=== PATIENT | female | born 1955 | race Caucasian/White ===

== ENCOUNTER 2017-03-06 11:32 | Emergency (ER) | payer OTHER ==
[~2017-03-06] VITALS: Ht 154.9 cm; Wt 80.5 kg
[~2017-03-06 11:32] MED LIST: BENT20TA PO; FIORIC PO; HYDR15TA PO; LEVO112T17 PO; LISI-360 PO; NAPR-573 PO; PRED20 PO; RANI150 PO; ROBA750T3 PO; TRAM50 PO
[2017-03-06 11:33] VITALS: BP 179/104; PULSE 160; RESP 20; TEMP 98.1; O2SAT 98
[2017-03-06 11:52] VITALS: BP 157/119; PULSE 159; RESP 17; TEMP 98.3; O2SAT 99
[2017-03-06] MEDS ORDERED: DILTIAZEM INJ 125 MG in SODIUM CHLORIDE 0.9% INJ 100 ML IV PRN (12:00)
[2017-03-06] MEDS ORDERED: SODIUM CHLORIDE 0.9% FLUSH 10 ML FLUSH IVF PRN (12:00)
[2017-03-06] MEDS ORDERED: SODIUM CHLOR 0.9% 1000 ML INJ 1,000 ML IV ONE (12:00)
[2017-03-06] MEDS ORDERED: DILTIAZEM HCL 25 MG/5 ML VIAL IV PUSH ONE (12:00)
[2017-03-06 12:17] VITALS: BP 191/84; PULSE 101; RESP 18; O2SAT 97
[2017-03-06 12:19] VITALS: BP 154/68; PULSE 98; RESP 17; O2SAT 97
--- NOTE | 2017-03-06 12:29 | RADRPT ---
EXAM DATE/TIME: 03/06/2017 12:10 [place] COMPARISON: No previous studies available for comparison. INDICATIONS : Chest pain. MEDICAL HISTORY : Hypertension. SURGICAL HISTORY : None. ENCOUNTER: Initial ACUITY: 1 day PAIN SCORE: 7/10 LOCATION: Bilateral middle chest FINDINGS: A single view of the chest demonstrates the lungs to be symmetrically aerated without evidence of mas s, infiltrate or effusion. The cardiomediastinal contours are unremarkable. Osseous structures are intact. CONCLUSION: No acute disease. Pacheco Huddleston MD on March 06, 2017 at 12:28 Board Certified Radiologist. This report was verified electronically.
--- NOTE | 2017-03-06 12:30 | PD ---
HPI Chief Complaint: Chest Pain Time Seen by Provider: 11:58 Travel History International Travel<30 days: No Contact w/Intl Traveler<30days: No Traveled to known affect area: No History of Present Illness HPI This 62-year-old woman who presents to the emergency department cleaning of 3 days of headache and neck pain with the abrupt onset of severe pounding chest pain about 40 minutes prior to arrival. She describes palpitations and chest discomfort. She's never had previous similar symptoms. Denies any injury or overuse in her neck or back. She takes tramadol for chronic pain as well as methotrexate and Percocet prednisone for rheumatoid arthritis. No history of arrhythmia or heart problems. History Past Medical History Narrative Medical Hypertension Hypothyroidism RA, on methotrexate and prednisone Fibromyalgia Menopausal: Yes : 3 Para: 3 Social History Alcohol Use: Yes (OCCASIONALLY) Tobacco Use: No Allergies-Medications (Allergen,Severity, Reaction): Coded Allergies: ibuprofen (Unverified Adverse Reaction, Severe, ABD PAIN, 12/18/16) Reported Meds & Prescriptions Reported Meds & Active Scripts Active Robaxin-750 (Methocarbamol) 750 Mg Tab 750 Mg PO QID PRN Deltasone 20 Mg Tab (Prednisone) 20 Mg Tab 20 Mg PO BID 5 Days Robaxin-750 (Methocarbamol) 750 Mg Tab 750 Mg PO QID PRN Ultram (Tramadol HCl) 50 Mg Tab 50 Mg PO Q6 PRN FOR PAIN Lisinopril 10 mg (Lisinopril) 10 Mg Tab 10 Mg PO DAILY Fioricet Tab (Acetaminophen/Butalbital/Caffeine) 1 Tab Tab 1 Tab PO Q6H PRN Reported Bentyl (Dicyclomine HCl) 20 Mg Tab 20 Mg PO QID PRN Naproxen 375 Mg Tab 375 Mg PO Q12 Plaquenil (Hydroxychloroquine Sulfate) 200 Mg Tab 200 Mg PO DAILY Zantac (Ranitidine HCl) 150 Mg Tab 150 Mg PO DAILYPRN Levoxyl (Levothyroxine Sodium) 112 Mcg Tab 112 Mcg PO DAILY Review of Systems Except as stated in HPI: all other systems reviewed are Neg Physical Exam Narrative GENERAL: Well-appearing 62-year-old woman, no acute distress. SKIN: Focused skin assessment warm/dry. HEAD: Atraumatic. Normocephalic. EYES: Pupils equal and round. No scleral icterus. No injection or drainage. ENT: No nasal bleeding or discharge. Mucous membranes pink and moist. NECK: Trachea midline. No JVD. CARDIOVASCULAR: Heart rate rapid and regular. No murmurs. RESPIRATORY: No accessory muscle use. Clear to auscultation. Breath sounds equal bilaterally. GASTROINTESTINAL: Abdomen soft, non-tender, nondistended. Hepatic and splenic margins not palpable. MUSCULOSKELETAL: No obvious deformities. No clubbing. No cyanosis. No edema. NEUROLOGICAL: Awake and alert. No obvious cranial nerve deficits. Motor grossly within normal limits. Normal speech. PSYCHIATRIC: Anxious. Data Data Last Documented VS Vital Signs Date Time Temp Pulse Resp B/P (MAP) Pulse Ox O2 Delivery O2 Flow Rate FiO2 03/06/17 12:31 88 18 140/65 (90) 98 03/06/17 12:19 Room Air 03/06/17 11:52 98.3 Orders Orders Electrocardiogram (03/06/17 11:58) Complete Blood Count With Diff (03/06/17 11:58) Comprehensive Metabolic Panel (03/06/17 11:58) Magnesium (Mg) (03/06/17 11:58) Prothrombin Time / Inr (Pt) (03/06/17 11:58) Act Partial Throm Time (Ptt) (03/06/17 11:58) Troponin I (03/06/17 11:58) Chest, Single Ap (03/06/17 11:58) Ecg Monitoring (03/06/17 11:58) Iv Access Insert/Monitor (03/06/17 11:58) Oximetry (03/06/17 11:58) Oxygen Administration (03/06/17 11:58) Sodium Chloride 0.9% Flush (Ns Flush) (03/06/17 12:00) Sodium Chlor 0.9% 1000 Ml Inj (Ns 1000 M (03/06/17 12:00) Vital Signs (Adult) Q15MX4,Q4H (03/06/17 11:58) Pie Cutter / Telemetry RITIKA.Q8H (03/06/17 11:58) Cardiac Rhythm RITIKA.Q8H (03/06/17 11:58) Notify Dr: Other (03/06/17 11:58) Diltiazem Inj (Cardizem Inj) (03/06/17 12:00) Diltiazem Inj (Cardizem Inj) (03/06/17 12:00) Electrocardiogram (03/06/17 11:50) Labs Laboratory Tests Test 03/06/17 12:10 White Blood Count 14.2 TH/MM3 Red Blood Count 4.99 MIL/MM3 Hemoglobin 12.8 GM/DL Hematocrit 39.9 % Mean Corpuscular Volume 80.0 FL Mean Corpuscular Hemoglobin 25.6 PG Mean Corpuscular Hemoglobin Concent 32.0 % Red Cell Distribution Width 19.3 % Platelet Count 410 TH/MM3 Mean Platelet Volume 7.9 FL Neutrophils (%) (Auto) 81.4 % Lymphocytes (%) (Auto) 11.6 % Monocytes (%) (Auto) 6.0 % Eosinophils (%) (Auto) 0.4 % Basophils (%) (Auto) 0.6 % Neutrophils # (Auto) 11.5 TH/MM3 Lymphocytes # (Auto) 1.6 TH/MM3 Monocytes # (Auto) 0.9 TH/MM3 Eosinophils # (Auto) 0.1 TH/MM3 Basophils # (Auto) 0.1 TH/MM3 CBC Comment DIFF FINAL Differential Comment Prothrombin Time 10.3 SEC Prothromb Time International Ratio 0.9 RATIO Activated Partial Thromboplast Time 27.9 SEC Blood Urea Nitrogen 15 MG/DL Creatinine 0.76 MG/DL Random Glucose 138 MG/DL Total Protein 8.0 GM/DL Albumin 3.9 GM/DL Calcium Level 9.3 MG/DL Magnesium Level 2.1 MG/DL Alkaline Phosphatase 107 U/L Aspartate Amino Transf (AST/SGOT) 27 U/L Alanine Aminotransferase (ALT/SGPT) 35 U/L Total Bilirubin 0.6 MG/DL Sodium Level 137 MEQ/L Potassium Level 3.2 MEQ/L Chloride Level 100 MEQ/L Carbon Dioxide Level 27.8 MEQ/L Anion Gap 9 MEQ/L Estimat Glomerular Filtration Rate 78 ML/MIN Troponin I LESS THAN 0.02 NG/ML MDM Medical Decision Making Medical Screen Exam Complete: Yes Emergency Medical Condition: Yes Interpretation(s) My review of initial EKG: Rapid fairly regular narrow rhythm at a rate of 157 probable atrial flutter. No definite evidence of acute ischemia. My review of repeat EKG from 12:20 PM: Normal sinus rhythm at a rate of 94, normal axis, normal intervals, no acute ischemia. Chest x-ray: LABS: CBC remarkable for mild leukocytosis. CMP unremarkable Troponin negative Magnesium normal Coags unremarkable Differential Diagnosis SVT, a flutter, arrhythmia, electrolyte abnormalities, other Narrative Course Medical decision making INITIAL: This is a 8-year-old woman presents emergency Department with chest pain and palpitations found to be in SVT, likely a flutter, we'll check labs, x- ray, diltiazem, reassess. FINAL: Patient with SVT, possible a flutter, spontaneously resolved. Workups unremarkable. Recommend outpatient follow-up. Diagnosis Primary Impression: SVT (supraventricular tachycardia) Additional Instructions: Follow-up with your primary doctor in the next 2-4 days. Return to the emergency department for any new or worsening symptoms. Med/Other Pt SpecificInfo: No Change to Meds Disposition: 01 DISCHARGE HOME Condition: Stable Alex Weiner MD Mar 06, 2017 12:30
[2017-03-06 12:31] VITALS: BP 140/65; PULSE 88; RESP 18; O2SAT 98
[2017-03-06 13:24] LABS: AUTOMATED NEUTROPHIL # 11.5 TH/MM3 (1.8-7.7); BASOPHIL # 0.1 TH/MM3 (0-0.2); BASOPHIL % 0.6 % (0.0-2.0); EOSINOPHIL # 0.1 TH/MM3 (0-0.4); EOSINOPHIL % 0.4 % (0.0-4.0); HEMATOCRIT 39.9 % (35.0-46.0); HEMO FLAGS DIFF FINAL; LYMPH % 11.6 % (9.0-44.0); LYMPHOCYTE # 1.6 TH/MM3 (1.0-4.8); MEAN CORPUSCULAR HEMOGLOBIN 25.6 PG (27.0-34.0); NEUT % 81.4 % (16.0-70.0); PLATELET COUNT 410 TH/MM3 (150-450); RED BLOOD COUNT 4.99 MIL/MM3 (4.00-5.30); RED CELL DISTRIBUTION WIDTH 19.3 % (11.6-17.2); WHITE BLOOD COUNT 14.2 TH/MM3 (4.0-11.0)
[2017-03-06 13:42] LABS: APTT (PATIENT) 27.9 SEC (24.3-30.1); INTERNATIONAL NORMALIZED RATIO 0.9 RATIO; PROTHROMBIN TIME - PATIENT 10.3 SEC (9.8-11.6)
[2017-03-06 13:51] LABS: ANION GAP 9 MEQ/L (5-15); AST (GOT) 27 U/L (15-37); BICARBONATE 27.8 MEQ/L (21.0-32.0); BLOOD UREA NITROGEN 15 MG/DL (7-18); CHLORIDE 100 MEQ/L (98-107); GLOMERULAR FILTRATION RATE 78 ML/MIN (>89); MAGNESIUM 2.1 MG/DL (1.5-2.5); POTASSIUM 3.2 MEQ/L (3.5-5.1); SODIUM (NA) 137 MEQ/L (136-145)
[2017-03-06 13:57] LABS: ALKALINE PHOSPHATASE 107 U/L (45-117); ALT (GPT) 35 U/L (10-53); TOTAL BILIRUBIN ADULT 0.6 MG/DL (0.2-1.0)
--- NOTE | 2017-03-07 13:25 | EKG ---
Date Performed: 03/06/2017 Time Performed: 11:50:21 PTAGE: 62 years EKG: ATRIAL FLUTTER/TACHYCARDIA WITH RAPID VENTRICULAR RESPONSE MODERATE ST DEPRESSION ABNORMAL QRS-T ANGLE ABNORMAL ECG NO PREVIOUS TRACING DOCTOR: Kb Sarmiento Interpretating Date/Time 03/07/2017 13:18:01
--- NOTE | 2017-03-07 13:52 | EKG ---
Date Performed: 03/06/2017 Time Performed: 12:20:03 PTAGE: 62 years EKG: Sinus rhythm Compared to PREVIOUS TRACING sinus rhythm has replaced atrial flutter, there is improvement of ST T changes and loss of R wave in the anterior precordium is new. Clinical correlation is recommended PRE VIOUS TRACIN03/06/2017 11.50 DOCTOR: Kb Sarmiento Interpretating Date/Time 03/07/2017 13:50:17
== END 2017-03-06 14:20 | disposition home or self-care (01) ==
LOC: NEPC 12:00
DX: R07.9 Chest pain, unspecified (principal); R00.2 Palpitations; D72.829 Elevated white blood cell count, unspecified; R51 Headache; M54.2 Cervicalgia; I10 Essential (primary) hypertension; M06.9 Rheumatoid arthritis, unspecified; I48.92 Unspecified atrial flutter; R94.31 Abnormal electrocardiogram [ECG] [EKG]
CPT/HCPCS: 71010; 80053; 83735; 84484; 85025; 85610; 85730; 93005; 96361; 96374; 99285; J7030

== ENCOUNTER 2017-05-21 15:57 | Emergency (ER) | payer OTHER ==
[2017-05-21 15:59] VITALS: BP 146/99; PULSE 116; RESP 16; TEMP 98.1; O2SAT 99
[2017-05-21] MEDS ORDERED: TRAM50TA PO (16:48)
[2017-05-21] MEDS ORDERED: HYDR25TA5 PO (16:48)
[2017-05-21] MEDS ORDERED: FOLI1TAB6 PO (16:48)
[2017-05-21] MEDS ORDERED: METO1TAB42 PO (16:48)
[2017-05-21] MEDS ORDERED: LEVO112T2 PO (16:48)
[2017-05-21] MEDS ORDERED: ZITHTAB PO (16:48)
[2017-05-21] MEDS ORDERED: METH750T PO (16:48)
[2017-05-21] MEDS ORDERED: METH2.5T PO (16:48)
[2017-05-21] MEDS ORDERED: AMOXICILLIN/CLAVULANATE K 875 MG TAB PO ONE (19:30)
[2017-05-21] MEDS ORDERED: AUGM875T3 PO (19:31)
--- NOTE | 2017-05-21 19:31 | PD ---
HPI Chief Complaint: ENT Complaint Time Seen by Provider: 19:18 Travel History International Travel<30 days: No Contact w/Intl Traveler<30days: No Traveled to known affect area: No History of Present Illness HPI 62-year-old female complains of right ear pain. Patient states that the pain started 4 days ago. Patient states that the pain as sharp severe pain started on the right ear with radiation to right upper neck. Patient denies any fever chills. Patient denies any coughing congestion. Patient denies any nausea vomiting diarrhea. Patient will see him a personal physician yesterday in given prescription for Z-Aj. Patient started Z-Aj yesterday. Patient states that she had persistent right ear pain despite taking the Z-Aj. Patient has been taking tramadol at home as needed for pain. PFSH Past Medical History Hx Anticoagulant Therapy: No Arthritis: Yes (RHEUMATOID) Cardiovascular Problems: Yes (HTN) Cerebrovascular Accident: No Diabetes: No Diminished Hearing: No GERD: Yes Hypertension: Yes Respiratory: No Immunizations Current: No Thyroid Disease: Yes (HYPO) Tetanus Vaccination: > 5 Years Influenza Vaccination: Yes Menopausal: Yes : 3 Para: 3 Tubal Ligation: Yes Past Surgical History Cholecystectomy: Yes Hysterectomy: Yes (PARTIAL) Social History Alcohol Use: Yes (OCCASIONALLY) Tobacco Use: No Substance Use: No Allergies-Medications (Allergen,Severity, Reaction): Coded Allergies: ibuprofen (Unverified Adverse Reaction, Severe, ABD PAIN, 05/21/17) Reported Meds & Prescriptions Reported Meds & Active Scripts Active Reported Levothyroxine (Levothyroxine Sodium) 112 Mcg Tab 112 Mcg PO DAILY Folic Acid 1 Mg Tablet 1 Mg PO DAILY Hydrochlorothiazide 25 Mg Tab 25 Mg PO DAILY Zithromax Z-Aj (Azithromycin) 250 Mg Dspk 250 Mg PO DIRECTED 500 MG (2 tabs) day 1, then 1 tab days 2-5. Methocarbamol 750 Mg Tab 750 Mg PO TID PRN Metoprolol Succinate ER 24 HR (Metoprolol Succinate) 25 Mg Tab 25 Mg PO DAILY Methotrexate 2.5 Mg Tab 25 Mg PO SATURDAY Tramadol (Tramadol HCl) 50 Mg Tab 50 Mg PO TID Review of Systems General / Constitutional: No: Fever Eyes: No: Visual changes HENT: Positive: Neck Pain, Earache, No: Headaches Cardiovascular: No: Chest Pain or Discomfort Respiratory: No: Shortness of Breath Gastrointestinal: No: Abdominal Pain Genitourinary: No: Dysuria Musculoskeletal: No: Pain Skin: No Rash Neurologic: No: Weakness Psychiatric: No: Depression Endocrine: No: Polydipsia Hematologic/Lymphatic: No: Easy Bruising Physical Exam Narrative GENERAL: Well-nourished, well-developed patient. SKIN: Focused skin assessment warm/dry. HEAD: Normocephalic. EYES: No scleral icterus. No injection or drainage. Right TM erythematous bulging with effusion. Ear canal normal. Throat: Nonerythematous. NECK: Supple, trachea midline. No JVD. Patient has mild right anterior cervical lymphadenopathy. No meningismus CARDIOVASCULAR: Regular rate and rhythm without murmurs, gallops, or rubs. RESPIRATORY: Breath sounds equal bilaterally. No accessory muscle use. GASTROINTESTINAL: Abdomen soft, non-tender, nondistended. MUSCULOSKELETAL: No cyanosis, or edema. BACK: Nontender without obvious deformity. No CVA tenderness. Neurologic exam normal. Data Data Last Documented VS Vital Signs Date Time Temp Pulse Resp B/P (MAP) Pulse Ox O2 Delivery O2 Flow Rate FiO2 05/21/17 15:59 98.1 116 16 146/99 (115) 99 Orders Orders Amoxicil-Clavulanate (Augmentin) (05/21/17 19:30) [facility] Medical Decision Making Medical Screen Exam Complete: Yes Emergency Medical Condition: Yes Differential Diagnosis Differential diagnoses include otitis externa, otitis media, serous otitis media. Narrative Course 62-year-old female with right earache. Patient's taking Z-Aj. Augmentin 875 mg, 1 tablet p.o. even. Diagnosis Primary Impression: Right otitis media Qualified Codes: H66.001 - Acute suppurative otitis media without spontaneous rupture of ear drum, right ear Patient Instructions: General Instructions Additional Instructions: Stop Zithromax. Augmentin as directed. Continue with tramadol for pain. Follow-up with personal physician. Return if worse. Med/Other Pt SpecificInfo: Prescription(s) given Scripts Amoxicillin-Clavulanate (Augmentin) 875-125 Mg Tab 1 TAB PO BID for Infection, #20 TAB 0 Refills Prov: Ander Sinclair MD 05/21/17 Disposition: 01 DISCHARGE HOME Condition: Stable Ander Sinclair MD May 21, 2017 19:31
== END 2017-05-21 19:47 | disposition home or self-care (01) ==
LOC: NEPD 15:57
DX: H66.001 Acute suppurative otitis media without spontaneous rupture of ear drum, right ear (principal); M54.2 Cervicalgia; E03.9 Hypothyroidism, unspecified; I10 Essential (primary) hypertension; M06.9 Rheumatoid arthritis, unspecified
CPT/HCPCS: 99283